=== PATIENT | male | born 1995 | race Two or more races ===

== ENCOUNTER → 2022-08-20 | Outpatient (REF) | payer OTHER | LOC: M SMT 12:59 | PROVIDERS: ATTEND Urology | DX: Z30.2 Encounter for sterilization (principal) ==

== ENCOUNTER → 2022-09-29 | Outpatient (REF) | payer OTHER ==
[2022-09-29 14:24] LABS: SEMEN APPEARANCE OPAQUE (OPAQUE); SEMEN VISCOSITY LIQUID (LIQUID); SEMEN VOLUME 1.4 ml (2.0-5.0)
[2022-09-29 14:25] LABS: WBC CONCENTRATION <=1 M/ml (<=1 M/ml)
== END ==
LOC: M SMT 13:24
PROVIDERS: ATTEND Urology
DX: Z30.8 Encounter for other contraceptive management (principal)

== ENCOUNTER 2023-11-04 23:58 | Emergency (ER) | payer OTHER ==
[~2023-11-04] VITALS: Ht 188 cm; Wt 122.8 kg
[2023-11-05 06:04] VITALS: BP 137/60; TEMP 96.7; O2SAT 98
== END 2023-11-05 06:13 | disposition home or self-care (01) ==
LOC: M ED 23:58
DX: S06.0X0A Concussion without loss of consciousness, initial encounter (principal); W01.198A Fall on same level from slipping, tripping and stumbling with subsequent striking against other object, initial encounter; M50.323 Other cervical disc degeneration at C6-C7 level; M25.78 Osteophyte, vertebrae; Y92.015 Private garage of single-family (private) house as the place of occurrence of the external cause; Y93.89 Activity, other specified; Y99.9 Unspecified external cause status